=== PATIENT | male | born 1940 | race Caucasian/White ===

== ENCOUNTER 2019-08-08 08:37 | Emergency (ER) | payer MEDICARE, SELFPAY ==
[2019-08-08 08:38] VITALS: BP 161/81; PULSE 93; RESP 16; TEMP 37.3; O2SAT 98; BMI 24.0
[2019-08-08] MEDS: 0.9% Normal Saline 1,000 ML 150 ML IV (09:06)
[2019-08-08 09:12] LABS: Absolute Lymphocyte Count 0.33 X10^3/uL (0.83-4.51); Absolute Neutrophil Count 10.5 X10^3/uL (2.0-7.7); Basophil# 0.04 X10^3/uL; Basophil% 0.4 % (0-1); Eosinophil# 0.14 X10^3/uL; Eosinophils% 1.2 % (0-5); Hematocrit 41.4 % (40-54); Lymphocyte # 0.33 X10^3/ul (4.0); Lymphocyte % 2.9 % (19-41); Mean Corp Hgb Conc 33.8 g/dL (32-36); Mean Corpuscular Hgb 30.7 pg (27.0-32.0); Mean Corpuscular Volume 90.8 fL (80-94); Mean Platelet Vol. 9.4 fl (6.2-12.0); Monocyte# 0.33 X10^3/uL; Monocyte% 2.9 % (0-10); NRBC Flagged by Analyzer 0 % (0-5); Neutrophil # 10.48 X10^3/uL (2.7-7.7); POSITIVE DIFFERENTIAL YES; POSITIVE MORPHOLOGY YES; Platelet Count 135 K/mm3 (150-450); RBC Distribution Width CV 13.1 % (11.6-14.6); RBC Distribution Width SD 43.3 fl (35.1-43.9); Red Blood Count 4.56 M/mm3 (4.6-6.2); White Blood Count 11.4 K/mm3 (4.4-11.0)
[2019-08-08 09:15] LABS: Differential Indicated SCAN CRITERIA MET
[2019-08-08 09:24] LABS: Anion Gap 6 (5-15); BUN 21 mg/dL (7-18); BUN/Creat Ratio 18.3 RATIO (10-20); Calcium,Total 8.9 mg/dL (8.5-10.1); Chloride 107 mmol/L (98-107); Creatinine, Serum 1.15 mg/dL (0.70-1.30); EST Glomerular Filtration Rate 65 mL/min (>60); Est Glom Filt Rate - Afr Amer 79 mL/min (>60); Estimated Creatinine Clearance 54.66 ml/min; Glucose 115 mg/dL (74-106); Potassium 4.1 mmol/L (3.5-5.1); Sodium Level 139 mmol/L (136-145)
[2019-08-08 09:38] LABS: Lactic Acid 1.2 mmol/L (0.4-2.0)
[2019-08-08 09:49] LABS: Mucous, Urine 0 SEEN /hpf (<or=2+); Red Blood Cells-Urine 0 SEEN /hpf (0-5); Squamous Epithelial Cells - UA 0 SEEN /hpf (0-5)
[2019-08-08 09:53] LABS: Color, Urine Yellow (Yellow); Glucose, Dipstick Normal (Normal); Ketone-Dipstick 5 mg/dl (Negative); Leukocyte Esterase-Dipstick 500 /ul (Negative); Nitrite-Dipstick Positive (Negative); Occult Blood-Urine 150 /ul (Negative); Protein-Dipstick 30 mg/dl (Negative); Urine Bilirubin Dipstick Negative (Negative); Urine Clarity Sl. Cloudy (Clear); Urine Urobilinogen Normal (Normal)
[2019-08-08 10:00] LABS: Bacteria 2+ /hpf (None Seen); White Blood Cells >100 SEEN /hpf (0-5)
--- NOTE | 2019-08-08 10:08 | ED.DCSUM_ITS ---
- ER Visit Summary Date of Service: 08/08/19 Chief Complaint: [Dysuria] History of Present Illness: The patient is a 78 M [presents the emergency department with symptoms that started yesterday. Patient has had frequent urinary tract infections in the past. Does complain of some low back pain. Patient seen at urgent care and was noted to have a fever so he was sent to the ER. Patient did not take his temperature at home but subjectively is felt hot. Patient has history of prior stroke, [place], and high cholesterol. Patient has not had any abdominal pain or vomiting.] Physical Examination: [HEENT-PERRLA, EOMI. Cranial nerves II through XII grossly intact. TMs clear. Mucous membranes moist. No adenopathy. Cardiovascular-regular rate and rhythm without murmur or ectopy Lungs-clear to auscultation, chest wall stable without crepitus or subcu emphysema Abdomen-normoactive bowel sounds, soft, nontender, no rebound or rigidity, no peritoneal signs. Extremities-intact ?4, normal range of motion, normal pulses, atraumatic] Test Results: [Blood and urine culture sent. CBC with differential obtained showing an 11.4, hemoglobin 14, hematocrit 41, plates 135. Chemistries unremarkable. Urinalysis positive for 500 leukocyte esterase and greater than 100 WBCs as well as +2 bacteria. Lactate was normal at 1.2.] Emergency Department Course and Treatment: [Patient was given Rocephin 1 g IV. Patient was started on Azo.] Treatment Plan: [She will be treated with Bactrim and Pyridium. Patient to follow-up with his primary care physician within next 3 to 5 days. Patient to return if vomiting, worsening abdomen or back pain, or conditions worsen anyway.] Disposition: [Discharged home in stable condition.] Impression: [UTI] This note was generated with [employer] dictation software. It may contain incorrect words, spelling, and punctuation that were not noted in review of the chart prior to signing ED Disposition - Plan for ED Patient: Referrals: Joshua Colón MD [Primary Care Provider] -
--- NOTE | 2019-08-08 10:10 | ED.DEP ---
ED Disposition - Plan for ED Patient: Instructions: Bladder Infection, Male (Adult) Prescriptions: Smz/Tmp Ds [Bactrim Ds] 1 tab PO BID #14 tab Prescription Printed Phenazopyridine HCl [Pyridium] 200 mg PO BID PRN PRN #10 tab PRN Reason: Pain Prescription Printed Referrals: Joshua Colón MD [Primary Care Provider] - 3-5 Days
[2019-08-08] MEDS: Phenazopyridine 95 MG Tablet 190 MG PO (10:20)
[2019-08-08] MEDS: Ceftriaxone 1 GM/50 ML BAG IV (10:31)
[2019-08-08 10:35] VITALS: BP 169/78; PULSE 88; RESP 18; TEMP 36.8; O2SAT 99
[2019-08-08 11:15] VITALS: BP 150/60; PULSE 86; RESP 16; O2SAT 97
== END 2019-08-08 11:16 | disposition home or self-care (01) ==
LOC: ED 08:58
PROVIDERS: Emergency Provider Emergency Medicine; Family Provider Family Medicine; PCP Family Medicine
DX: N39.0 Urinary tract infection, site not specified (principal); I25.2 Old myocardial infarction; E78.00 Pure hypercholesterolemia, unspecified; I25.10 Atherosclerotic heart disease of native coronary artery without angina pectoris; Z86.73 Personal history of transient ischemic attack (TIA), and cerebral infarction without residual deficits; Z87.440 Personal history of urinary (tract) infections; Z79.02 Long term (current) use of antithrombotics/antiplatelets; Z79.899 Other long term (current) drug therapy
CPT/HCPCS: 36415; 80048; 81001; 83605; 85025; 87040; 87077; 87086; 87088; 87186; 96365; 99284; J7030; A4216

== ENCOUNTER 2020-05-24 15:05 | Emergency (ER) | payer MEDICARE, SELFPAY ==
[2020-05-24 15:06] VITALS: BP 146/86; PULSE 84; RESP 16; TEMP 36.4; O2SAT 99; BMI 25.0
--- NOTE | 2020-05-24 15:21 | ED.VISSUMM ---
- ER Visit Summary Date of Service: 05/24/20 Chief Complaint: Constipation and abdominal pain History of Present Illness: The patient is a 79 M who presents for constipation and abdominal pain. He was seen 6 days ago at an outside hospital for abdominal pain. He has periumbilical pain that radiates to the back. He had a CT which he thinks was unremarkable. He was diagnosed with a UTI and has been taking Keflex. He received morphine at the outside hospital. He presents with no bowel movement since that time. He does not have the urge to go or feel rectal pain. Denies bleeding. Denies vomiting. He has a history of coronary disease, [place], hypertension, hyperlipidemia. History of cholecystectomy remotely. No back or vascular surgery. Physical Examination: Afebrile and vital signs unremarkable. Patient appears uncomfortable but not toxic or in distress. Heart is regular rate and rhythm. Lungs clear. Abdomen is soft and nontender. Normal bowel sounds. Skin appears normal. Test Results: We will start with labs, urinalysis. Patient may need imaging. Will attempt to obtain the outside hospital imaging results. Emergency Department Course and Treatment: Patient was treated with IV fluids while awaiting results. He declined pain medicine. CBC, CMP, lipase unremarkable except ALT 65 and AST 50. His recent ALT was 55. Urinalysis unremarkable. Lactate normal. I reviewed his outside imaging. He had a CTA that was normal. He had a CT that showed a right renal cyst. He has a history of this cyst, according the patient. He also has a right inguinal hernia with bowel just up to the orifice. He is not having pain in this area. I do not suspect he has a hernia with incarceration or strangulation or obstruction. I did check an x-ray. He has a large stool burden but no sign of obstruction. I suspect his pain and no bowel movement for several days is consistent with his constipation. He is taking Dulcolax and enemas with no improvement. Will try magnesium citrate and MiraLAX. Bentyl as needed for cramps. Follow-up with primary care. Treatment Plan: As above Disposition: Discharge Impression: Constipation, abdominal pain, right inguinal hernia, right renal cyst, mild transaminitis This note was generated with [employer] dictation software. It may contain incorrect words, spelling, and punctuation that were not noted in review of the chart prior to signing ED Disposition - Plan for ED Patient: Instructions: ED Constipation Prescriptions: Dicyclomine HCl [Bentyl] 20 mg PO TIDAC #10 cap Prescription Printed Polyethylene Glycol 3350 [Miralax] 17 gm PO DAILY #30 packet Prescription Printed Referrals: Joshua Colón MD [Primary Care Provider] -
[2020-05-24] MEDS: 0.9% Normal Saline 1,000 ML 1000 ML IV (15:27)
[2020-05-24 15:49] LABS: Absolute Lymphocyte Count 1.14 X10^3/uL (0.83-4.51); Absolute Neutrophil Count 4.2 X10^3/uL (2.0-7.7); Basophil# 0.02 X10^3/uL; Basophil% 0.3 % (0-1); Eosinophil# 0.11 X10^3/uL; Eosinophils% 1.8 % (0-5); Hematocrit 41.5 % (40-54); Hemoglobin 14.4 g/dL (13.0-16.5); Lymphocyte # 1.14 X10^3/ul (4.0); Lymphocyte % 18.6 % (19-41); Mean Corp Hgb Conc 34.7 g/dL (32-36); Mean Corpuscular Hgb 30.6 pg (27.0-32.0); Mean Corpuscular Volume 88.3 fL (80-94); Mean Platelet Vol. 8.7 fl (6.2-12.0); Monocyte# 0.63 X10^3/uL; Monocyte% 10.3 % (0-10); NRBC Flagged by Analyzer 0 % (0-5); Neutrophil # 4.19 X10^3/uL (2.7-7.7); Neutrophil % 68.3 % (47-70); Platelet Count 215 K/mm3 (150-450); RBC Distribution Width SD 39.1 fl (35.1-43.9); White Blood Count 6.1 K/mm3 (4.4-11.0)
[2020-05-24 16:01] LABS: ALB/GLOB Ratio 0.7 RATIO (0.9-2.4); AST(SGOT) 50 U/L (15-37); Alanine Aminotransfer ALT/SGPT 65 U/L (16-61); Albumin, Serum 3.2 g/dL (3.2-5.0); Alkaline Phosphatase 96 U/L (45-117); Anion Gap 5 (5-15); BUN 10 mg/dL (7-18); BUN/Creat Ratio 11.8 RATIO (10-20); Calcium,Total 8.6 mg/dL (8.5-10.1); Chloride 99 mmol/L (98-107); Creatinine, Serum 0.85 mg/dL (0.70-1.30); EST Glomerular Filtration Rate 93 mL/min (>60); Est Glom Filt Rate - Afr Amer 112 mL/min (>60); Estimated Creatinine Clearance 68.18 ml/min; Globulin 4.4 g/dL (2.2-4.2); Glucose 94 mg/dL (74-106); Lipase 134 U/L (73-393); Potassium 3.8 mmol/L (3.5-5.1); Protein, Total 7.6 g/dL (6.4-8.2); Sodium Level 132 mmol/L (136-145)
[2020-05-24 16:15] LABS: Lactic Acid 1.2 mmol/L (0.4-1.9)
--- NOTE | 2020-05-24 16:22 | RAD_ITS ---
STUDY: X-RAY - ABDOMEN/PELVIS REASON FOR EXAM: Male, 79 years old. DIFFUSE ABDOMEN PAIN, CONSTIPATION TECHNIQUE: Two AP supine views of the abdomen and pelvis. COMPARISON: None. FINDINGS: Normal visualized lung bases. There is an unremarkable bowel gas pattern. There is no demonstrated free abdominal air. Prominent visualized stool burden. Normal soft tissue structures. Normal visualized osseous structures. RAD/Abdomen Single View (Portable) IMPRESSION: Prominent stool burden. Electronically Signed: Iraj Stapleton, at 17:36 EDT Tel , Service support ,
[2020-05-24 16:37] LABS: Bacteria 0 SEEN /hpf (None Seen); Mucous, Urine 0 SEEN /hpf (<or=2+); White Blood Cells 0 SEEN /hpf (0-5)
[2020-05-24 16:44] LABS: Color, Urine Yellow (Yellow); Glucose, Dipstick Normal (Normal); Ketone-Dipstick Negative (Negative); Leukocyte Esterase-Dipstick Negative /ul (Negative); Nitrite-Dipstick Negative (Negative); Occult Blood-Urine 25 /ul (Negative); Protein-Dipstick 15 mg/dl (Negative); Urine Bilirubin Dipstick Negative (Negative); Urine Clarity Clear (Clear); Urine Urobilinogen Normal (Normal)
[2020-05-24 16:52] LABS: Red Blood Cells-Urine 0-5 SEEN /hpf (0-5); Squamous Epithelial Cells - UA 0-5 SEEN /hpf (0-5)
--- NOTE | 2020-05-24 18:17 | ED.DEP ---
ED Disposition - Plan for ED Patient: Instructions: ED Constipation Prescriptions: Dicyclomine HCl [Bentyl] 20 mg PO TIDAC #10 cap Prescription Printed Polyethylene Glycol 3350 [Miralax] 17 gm PO DAILY #30 packet Prescription Printed Referrals: Joshua Colón MD [Primary Care Provider] -
[2020-05-24 18:32] VITALS: BP 138/76; PULSE 90; RESP 14; O2SAT 99
== END 2020-05-24 18:33 | disposition home or self-care (01) ==
PROVIDERS: Emergency Provider Emergency Medicine; PCP Family Medicine
DX: K59.00 Constipation, unspecified (principal); R10.9 Unspecified abdominal pain; K40.90 Unilateral inguinal hernia, without obstruction or gangrene, not specified as recurrent; N28.1 Cyst of kidney, acquired; R74.0 Nonspecific elevation of levels of transaminase and lactic acid dehydrogenase [LDH]; I25.10 Atherosclerotic heart disease of native coronary artery without angina pectoris; I10 Essential (primary) hypertension; I25.2 Old myocardial infarction; E78.00 Pure hypercholesterolemia, unspecified; Z86.73 Personal history of transient ischemic attack (TIA), and cerebral infarction without residual deficits; Z79.02 Long term (current) use of antithrombotics/antiplatelets; Z79.899 Other long term (current) drug therapy; Z87.891 Personal history of nicotine dependence
CPT/HCPCS: 74018; 80053; 81001; 83605; 83690; 85025; 96360; 96361; 99283; J7030

== ENCOUNTER 2020-11-10 10:33 | Day surgery (SDC) | payer MEDICARE, SELFPAY ==
--- NOTE | 2020-11-06 13:40 | EKG12_ITS ---
Test Reason : PRE OP Blood Pressure : / mmHG Vent. Rate : 069 BPM Atrial Rate : 087 BPM P-R Int : 222 ms QRS Dur : 078 ms QT Int : 400 ms P-R-T Axes : 034 038 022 degrees QTc Int : 428 ms Sinus rhythm with marked sinus arrhythmia with 1st degree A-V block Septal infarct , age undetermined Abnormal ECG Confirmed by KENIA MOORE, ASHLEY ([id number]), editorial intern CARMELA MONDRAGON ([id number]) on 11/07/2020 8:28:26 AM Referred By: Pankaj Abbott Confirmed By:ASHLEY AQUINO MD
[2020-11-06 15:39] LABS: Hematocrit 47.7 % (40-54); Hemoglobin 15.6 g/dL (13.0-16.5); Mean Corp Hgb Conc 32.7 g/dL (32-36); Mean Corpuscular Hgb 28.8 pg (27.0-32.0); Mean Corpuscular Volume 88.2 fL (80-94); Mean Platelet Vol. 9.6 fl (6.2-12.0); Platelet Count 202 K/mm3 (150-450); RBC Distribution Width CV 12.9 % (11.6-14.6); RBC Distribution Width SD 41.7 fl (35.1-43.9); Red Blood Count 5.41 M/mm3 (4.6-6.2)
[2020-11-06 15:51] LABS: International Normalized Ratio 1.1; Partial Thromboplast Time 31.3 Seconds (24.1-36.2); Prothrombin Time (Protime)PT. 13.4 SECONDS (11.7-14.9)
[2020-11-06 16:09] LABS: AST(SGOT) 29 U/L (15-37); Alanine Aminotransfer ALT/SGPT 40 U/L (16-61); Albumin, Serum 3.8 g/dL (3.2-5.0); Alkaline Phosphatase 81 U/L (45-117); Anion Gap 7 (5-15); BUN 14 mg/dL (7-18); BUN/Creat Ratio 14.3 RATIO (10-20); Bilirubin, Direct 0.15 mg/dL (0.00-0.30); Calcium,Total 9.2 mg/dL (8.5-10.1); Chloride 104 mmol/L (98-107); Creatinine, Serum 0.98 mg/dL (0.70-1.30); EST Glomerular Filtration Rate 79 mL/min (>60); Est Glom Filt Rate - Afr Amer 95 mL/min (>60); Globulin 3.6 g/dL (2.2-4.2); Glucose 89 mg/dL (74-106); Potassium 4.4 mmol/L (3.5-5.1); Protein, Total 7.4 g/dL (6.4-8.2); Sodium Level 140 mmol/L (136-145)
[2020-11-10] VITALS (9 sets, daily range): BP systolic 132–140; BP diastolic 60–91; PULSE 65–83; RESP 16–18; TEMP 36.1–37.3; O2SAT 96–100; BMI 24.1
[2020-11-10] MEDS: Lactated Ringers 1,000 ML 100 ML IV (11:03)
[2020-11-10] MEDS: Cefazolin 2 GM in 0.9% Normal Saline 100 ML IV (12:42)
--- NOTE | 2020-11-10 12:47 | HP.PCM_ITS ---
History of Present Illness Date of Admission: 11/10/20 Chief Complaint: BPH with obstruction The patient is a 80 year old male with BPH and obstruction plan to proceed with transurethral section of the prostate. Past Medical History Past Medical History (Chronic Problems): Chronic Problems History of AK (myocardial infarction) (Chronic) Coronary artery disease (Chronic) HLD (hyperlipidemia) (Chronic) Allergies No Known Allergies Allergy (Verified 11/10/20 10:35) Home Medications: Ambulatory Orders Medication Instructions Recorded Folic Acid 800 mg PO QHS 07/03/15 Multivitamin [Daily Multiple 1 tab PO QHS 07/03/15 Vitamin] Psyllium Husk [Fiber] 0.8 gm PO DAILY 04/20/17 Acetaminophen [Tylenol Tablet] 650 mg PO Q4H PRN PRN tablet 04/22/17 Clopidogrel Bisulfate [Plavix] 75 mg PO DAILY #30 tablet 04/22/17 Glucosamine/MSM/Chondroitin A 1 each PO QHS 05/09/17 [Glucosamine Chondroit MSM Tab] Simvastatin [Zocor] 40 mg PO QHS 08/08/19 Amlodipine [Norvasc] 5 mg PO DAILY 11/03/20 Ciprofloxacin [Cipro] 500 mg PO BID #6 tab 11/10/20 Ibuprofen 600 mg PO Q6H PRN PRN 7 Days #14 11/10/20 tab Surgical History: - - Cholecystectomy. Psychiatric History: No pertinent psych hx Smoking Status: Former smoker - *Family History Paternal History Items: - - Father with history of tuberculosis and chronic lung disease, in his 50s. Maternal History Items: Cancer - Mother with history of breast cancer. Review of Systems Constitutional: Denies: Chills, Fever, Weight Change HEENT: Denies: Head Aches, Sinus Congestion, Sinus Drainage Cardiovascular: Denies: Chest Pain, Palpitations Respiratory: Denies: Cough, Shortness of breath at rest, Sputum production Gastrointestinal: Denies: Abdominal Pain, Nausea, Vomiting Genitourinary: Denies: Dysuria Musculoskeletal: Denies: Joint Pain, Joint Tenderness Skin: Denies: Rash, Wounds Neurological: Denies: Numbness, Tingling, Focal weakness Psychiatric: Denies: Anxiety, Depression, Homicidal Ideations, Suicidal Ideations Hematologic/ Lymphatic: Denies: Easy Bruising, Easy Bleeding VTE Information - Inpt Only VTE Present on Admission: No - Physical Exam Vitals/I&O's: Vital Signs Temp Pulse Resp BP Pulse Ox 99.1 F 74 16 140/74 H 96 11/10/20 10:56 11/10/20 10:56 11/10/20 10:56 11/10/20 10:56 11/10/20 10:56 Oxygen Delivery Method Room Air Weight: 76.3 kg Body Mass Index (BMI) 24.1 Finger Stick Blood Glucose 102 General: Alert, Oriented x3, Cooperative HEENT: Atraumatic, PERRLA, EOMI, Normocephalic Neck: Supple, No JVD, Negative Carotid Bruits Lungs: Clear to auscultation, Normal air movement Cardiovascular: Regular rate, No murmurs Abdomen: Bowel Sounds Present, Soft, Non Tender Extremities: No edema, Capillary Refill Less than 3 Seconds Skin: No rashes, No breakdown Musculoskeletal: No Tenderness to Palpation of Joints or Extremities Neurological: Cranial nerves II-XII grossly intact Psych/Mental Status: Normal Affect, Appropriate Microbiology Past 72 Hours 11/09/20 11:08 Interface Orders SARS-CoV-2 Antigen (Rapid) - Final Current Medications Acetaminophen (Acetaminophen 325 Mg Tablet) 650 mg PO Q4H PRN PRN PRN Reason: Headache/Temp>99F Acetaminophen (Acetaminophen 325 Mg Tablet) 325 mg PO Q4H PRN PRN PRN Reason: PAIN Acetaminophen/Codeine Phosphate (Acetaminophen/Codeine #3 Tablet) 1 tablet PO Q4H PRN PRN PRN Reason: PAIN Al Hydroxide/Mg Hydroxide (Mag Hydrox/Al Hydrox/Simeth 30 Ml Udc) 30 ml PO Q4H PRN PRN PRN Reason: Heartburn Amlodipine Besylate (Amlodipine 5 Mg Tablet) 5 mg PO DAILY [facility] Docusate Sodium (Docusate Sodium 100 Mg Capsule) 100 mg PO BID [facility] Cefazolin Sodium 2 gm/ Sodium (Chloride) 110 mls @ 150 mls/hr IV PREOP ONE Stop: 11/10/20 13:33 Lactated Ringer's () 1,000 mls @ 100 mls/hr IV .Q10H [facility]E Last Admin: 11/10/20 11:03 Dose: 100 mls/hr Documented by: Ciprofloxacin (Cipro) 400 mg in 200 mls @ 200 mls/hr IV Q12 [facility] Sodium Chloride () 1,000 mls @ 75 mls/hr IV .[id number] [facility] Ibuprofen (Ibuprofen 600 Mg Tablet) 600 mg PO Q6H PRN PRN PRN Reason: PAIN Multivitamins (Multivitamins,Therapeutic Tablet) tablet PO QHS [facility] Non-Formulary Medication (Folic Acid) 800 mg PO QHS [facility] Non-Formulary Medication (Glucosamine/Msm/Chondroitin A [Glucosamine Chondroit Msm Tab]) 1 each PO QHS [facility] Non-Formulary Medication (Psyllium Husk [Fiber]) 0.8 gm PO DAILY [facility] Non-Formulary Medication (Simvastatin) 40 mg PO QHS [facility] Ondansetron HCl (Ondansetron 4 Mg/2 Ml Vial) 4 mg IV Q6H PRN PRN PRN Reason: Nausea Oxycodone HCl (Oxycodone 5 Mg Tablet) 5 mg PO Q4H PRN PRN PRN Reason: PAIN Pantoprazole Sodium (Pantoprazole Sodium 40 Mg Tablet) 40 mg PO DAILY [facility] Assessment/Plan All Active Problems TIA (transient ischemic attack) (Acute) CVA (cerebral vascular accident) (Acute) 80-year-old male with BPH obstruction from plan to proceed with BPH surgery with a TURP
--- NOTE | 2020-11-10 12:48 | PCM.DC.URO ---
Discharge Diet: Light diet - advance as tolerated Discharge Activity: Return to Normal Activity Additional Instructions: hold plavix, clopidogrel, DO NOT RESTART Allergies/Adverse Reactions: Allergies No Known Allergies Allergy (Verified 11/10/20 10:35) Medications to take at Discharge Folic Acid 800 mg PO QHS 07/03/15 Multivitamin [Daily Multiple Vitamin] 1 tab PO QHS 07/03/15 Psyllium Husk [Fiber] 0.8 gm PO DAILY 04/20/17 Acetaminophen [Tylenol Tablet] 650 mg PO Q4H PRN PRN tablet 04/22/17 Glucosamine/MSM/Chondroitin A [Glucosamine Chondroit MSM Tab] 1 each PO QHS 05/09/17 Simvastatin [Zocor] 40 mg PO QHS 08/08/19 Amlodipine [Norvasc] 5 mg PO DAILY 11/03/20 Ciprofloxacin [Cipro] 500 mg PO BID #6 tab 11/10/20 Ibuprofen 600 mg PO Q6H PRN PRN 7 Days #14 tab 11/10/20 The following prescriptions were given: Ciprofloxacin [Cipro] 500 mg PO BID #6 tab Transmission Status: Pending to [facility] Ibuprofen 600 mg PO Q6H PRN PRN 7 Days #14 tab PRN Reason: Pain 1-10 Or Fever Transmission Status: Pending to [facility] Primary Care Physician: Joshua Colón MD [Primary Care Provider] - Test Results: Test results from this visit will be discussed in further detail at your follow-up appointment, if applicable. Please Follow Up With: Pankaj Abbott MD When: in 2 weeks, please call to make an appointment. Proposed Discharge Date: 11/11/20
--- NOTE | 2020-11-10 12:50 | PROS_PTH ---
PATIENT: SHELBIE ALDRICH LOC: [facility] [place] U#:[id number] AGE/SX: 80/M ROOM: RE11/10/[address]: Dr. Pankaj Abbott MD : [id number] BED: DIS: 11/11/2020 SPEC #: [id number] RECD: 11/10/20 14:54 STATUS: WILLIAN REQuentin #: [id number] MARISABEL: 11/10/20 12:[address]: Pankaj Abbott DEPT: SURGICAL PATHOLOGY RECD BY: Elaina Chow ENTERED: 11/13/20 07:43 SP TYPE: TURP OTHR DR: Dr. Joshua Colón MD Tissues: Prostate, NOS Procedures: Surgery Specimen Level IV HEADER OPERATION: Cysto, TUR prostate, Olymp[employer] PRE-OP DIAGNOSIS: BPH with obstruction TISSUE SUBMITTED: Prostate chips MICROSCOPIC DIAGNOSIS Prostate, transurethral resection: Benign nodular hyperplasia, glandular and stromal types. Chronic inflammation. Urothelium with mild chronic inflammation. AM:soto 11/14/2020 MICROSCOPIC DESCRIPTION Slides are reviewed. GROSS DESCRIPTION Received is one container labeled with the patient's name and designated prostate tissue. The specimen consists of multiple irregular fragments of pink-alba, rubbery, soft tissue that in aggregate weigh 7.2 gm and measure in aggregate 6 x 6 x 0.4 cm. The entire specimen is submitted in seven cassettes. / AM:soto 11/13/20 TC:3 CPT: 73280
--- NOTE | 2020-11-10 13:16 | PCM.OPRPT ---
Report of Operation Date of Procedure: 11/10/20 Pre-Operative Diagnosis: BPH with obstruction Post-Operative Diagnosis: Same Surgery/Procedure Performed:: Transurethral section of prostate Description of Surgical Findings:: In the preoperative setting I discussed with the patient how the surgery would be done with expect afterwards. We discussed how a prostate resection is done and we discussed the risk of the surgery including, bleeding, infection, retrograde ejaculation, changes with ejaculation or intercourse,. We discussed the possibility that the resection of the prostate may not alleviate his urinary symptoms. We discussed the small risk of developing scar tissue along the urethral channel and strictures. We also discussed the chance of the prostate could grow back and he may need further surgery or treatment in the future for prostate problems. Patient was taken back to the operating room, timeout procedure was performed, he was identified and marked and placed on the operating room table. He underwent general anesthesia. He was placed in dorsolithotomy position. Penis and testicles were prepped and draped in usual sterile fashion. Went into the bladder using the visual obturator with a resectoscope. Once inside the bladder identified the right and left ureteral orifice. I then identified the prostate and the anatomy of the prostate. I marked out the area of the sphincter and the verumontanum was identified. I then proceeded with the prostate resection first resected the median lobe. And then resected the right lobe of the prostate. Then to resect the left lobe of the prostate. I then resected the apical tissue of the prostate. Made sure that there was no injury to the sphincter or the verumontanum was still intact. At the end of the resection all the chips were Ellik out of the bladder. I then identified the left and right ureteral orifice and these were confirmed to be in good position and effluxing and not injured. The resectoscope was removed, a 22 [place] catheter was placed into the bladder on continuous irrigation. And the urine was fairly light pink color and draining normally. He was taken back to the PACU in good condition. Type of Anesthesia:: General Drains: 22fr 3 way - Admit VTE Documentation VTE Present on Admission: No VTE Mechan Device Prophylaxis: SCD's
[2020-11-10] MEDS: 0.9% Normal Saline 1,000 ML 75 ML IV (13:53)
[2020-11-10] MEDS: Atorvastatin Calcium 20 MG Tablet PO (21:18)
[2020-11-10] MEDS: Docusate Sodium 100 MG Capsule PO (21:18)
[2020-11-10] MEDS: Multivitamins,Therapeutic Tablet 1 TABLET PO (21:18)
[2020-11-10] MEDS: Folic Acid 1 MG Tablet PO (21:18)
[2020-11-10] MEDS: Ciprofloxacin 400 MG/200 ML BAG 200 MG IV (23:07)
[2020-11-11] MEDS: Acetaminophen 325 MG Tablet PO (00:28)
[2020-11-11 02:08] VITALS: BP 124/61; PULSE 76; RESP 18; TEMP 36.4; O2SAT 96
[2020-11-11 02:12] VITALS: BMI 24.1
[2020-11-11] MEDS: 0.9% Normal Saline 1,000 ML 75 ML IV (02:13)
[2020-11-11 07:44] VITALS: BP 124/73; PULSE 61; RESP 16; TEMP 36.5; O2SAT 98
[2020-11-11] MEDS: Pantoprazole Sodium 40 MG Tablet PO (07:49)
[2020-11-11] MEDS: Psyllium 1 PACKET PO (07:49)
[2020-11-11] MEDS: Docusate Sodium 100 MG Capsule PO (07:49)
[2020-11-11] MEDS: amLODIPine 5 MG Tablet PO (07:50)
[2020-11-11] MEDS: Ciprofloxacin 400 MG/200 ML BAG 200 MG IV (09:26)
== END 2020-11-11 11:59 | disposition home or self-care (01) ==
LOC: SDC 10:34 → AC 10:35 → MS3 13:29
PROVIDERS: Anesthesiology; PCP Family Medicine; Referring Provider Urology; Visit Provider Urology
PROC: (CPT 52601; principal; 2020-11-10 12:40)
DX: N40.1 Benign prostatic hyperplasia with lower urinary tract symptoms (principal); N13.8 Other obstructive and reflux uropathy; Z20.828 Contact with and (suspected) exposure to other viral communicable diseases; I10 Essential (primary) hypertension; I25.2 Old myocardial infarction; N28.1 Cyst of kidney, acquired; E78.5 Hyperlipidemia, unspecified; I25.10 Atherosclerotic heart disease of native coronary artery without angina pectoris; E78.00 Pure hypercholesterolemia, unspecified; Z86.73 Personal history of transient ischemic attack (TIA), and cerebral infarction without residual deficits; Z87.440 Personal history of urinary (tract) infections; Z79.02 Long term (current) use of antithrombotics/antiplatelets; Z79.899 Other long term (current) drug therapy; Z87.891 Personal history of nicotine dependence
CPT/HCPCS: 00914; 52601; 36415; 80048; 80076; 85027; 85610; 85730; 87426; 88305; 93005; C9803; J7030; J7120; J0744; J2405

== ENCOUNTER 2021-03-05 17:19 | Emergency (ER) | payer MEDICARE, SELFPAY ==
[2020-11-10 10:56] VITALS: BMI 24.1
[2021-03-05 17:20] VITALS: BP 152/76; PULSE 59; RESP 16; TEMP 36.3; O2SAT 97; BMI 24.1
--- NOTE | 2021-03-05 17:47 | US_ITS ---
HISTORY: pain and swelling-bilat EXAMINATION: US Scrotum (Contents) TECHNIQUE: Realtime ultrasound of the testicles was performed with grayscale, Color Doppler and spectral Doppler analysis. COMPARISON: None FINDINGS: RIGHT: TESTIS: 4.5 x 3.2 x 2.7 cm. Normal in size and echotexture, without focal lesion. COLOR DOPPLER: Normal arterial flow present in the testicle with monophasic waveforms. EPIDIDYMIS: Normal in size and echotexture, 3 mm spermatocele. Normal color Doppler flow pattern in the epididymis. 4 mm scrotal huang. HYDROCELE: Moderate with internal debris. VARICOCELE: None. LEFT: TESTIS: 3.7 x 2.7 x 2.5 cm. Normal in size and echotexture, without focal lesion. COLOR DOPPLER: Normal arterial flow present in the testicle with monophasic waveforms. EPIDIDYMIS: Enlarged with heterogenous echotexture. 10 mm spermatocele. Hyperemic color Doppler flow pattern in the epididymis. HYDROCELE: Moderate with internal debris. VARICOCELE: Present. US/Testicular with Arterial Flow IMPRESSION: Findings consistent with left epididymitis. Normal testes bilaterally. at 1954 Reported and signed by: Nehemias Horton MD Electronically Signed: Nehemias Horton MD at 19:52 EDT Tel , Service support ,
--- NOTE | 2021-03-05 17:49 | EX.ED.GUMALE ---
HPI History of Present Illness Chief Complaint: Male Pain/Injury Informant: patient Pain Onset: Yesterday Timing: Continuous Current Severity: Mild Maximum Severity: Mild Narrative Narrative: 80-year-old male past medical history of of TIA, [place], CAD with stent on Plavix. Prior BPH with surgery for that. States yesterday he had gradual swelling of his scrotum and testicles. Worse on the left. Denies any falls or trauma. No fever. No dysuria. No hematuria. Denies any other complaints. No fever or chills. Prior similar symptoms: No Recent Illness/Hospitalization: No PFSH PFSH Medical History Hyperlipidemia Hypertension Myocardial infarct TIA (transient ischemic attack) Home Medications folic acid 800 mg PO QHS 07/03/15 [History Last Taken 07/02/15 20:00] multivitamin [Daily Multiple] 1 tab PO QHS 07/03/15 [History Last Taken 07/02/15 20:00] psyllium husk [Fiber (psyllium husk)] 0.8 g PO DAILY 04/20/17 [History Last Taken Unknown] acetaminophen [Tylenol] 650 mg PO Q4H PRN PRN tab 04/22/17 [Rx Last Taken Unknown] glucosamine [id number] 1 ea PO QHS 05/09/17 [History Last Taken Unknown] simvastatin 40 mg PO QHS 08/08/19 [History Last Taken Unknown] amlodipine 5 mg PO DAILY 11/03/20 [History Last Taken Unknown] ciprofloxacin HCl [Cipro] 500 mg PO BID 10 Days #20 tab 03/05/21 [Rx Last Taken Unknown] clopidogrel 75 mg PO DAILY 03/05/21 [History Last Taken Unknown] Allergy/AdvReac Type Severity Reaction Status Date / Time No Known Allergies Allergy Verified 03/05/21 17:20 Surgical History History of cholecystectomy History of coronary artery stent placement Social History Smoking Status: Former smoker ROS ROS ED ROS Narrative Patient denies any recent illness. Denies any complaints. Denies any constitutional symptoms. Review of Systems ROS Unobtainable: Denies due to encephalopathy Constitutional Constitutional ED: Denies fever(s) Eyes Eyes: Denies change in vision ENT ENT ED: Denies ear pain or sore throat Cardiovascular Cardiovascular: Denies chest pain Respiratory/Chest Respiratory/Chest: Denies dyspnea Gastrointestinal Gastrointestinal: Denies abdominal pain, diarrhea, nausea or vomiting Genitourinary Genitourinary ED: Reports testicular swelling; Denies dysuria, hematuria or testicular mass Musculoskeletal Musculoskeletal: Denies myalgias Integumentary Denies rash Neurologic Neurologic: Denies headache(s) Psychiatric Psychiatric: Denies depression Endocrine Endocrinology: Denies polyuria Hematologic/Lymphatic Hematologic/Lymphatic: Denies easy bruising Allergic/Immunologic Allergic/Immunologic ED: Denies urticaria EXAM Physical Exam Narrative Exam Narrative: Older male no acute distress. Vital signs stable afebrile. HEENT, neck, heart lung abdominal exams unremarkable. Abdomen spleen nontender. Moving all 4 extremities. No edema. Back nontender. Neurologic exam normal. External exam uncircumcised male. Scrotal swelling bilaterally. Left larger than the right. No cellulitis. No lesions. No foreign years gangrene. Mildly tender. Left hemiscrotum and testicle seems more enlarged than the right no bruising. Const Vital Signs: 03/05/21 17:20 Temperature 97.3 F L Temperature Source Temporal Pulse Rate 59 L Respiratory Rate 16 Blood Pressure 152/76 H Blood Pressure Mean 101 Pulse Ox 97 Oxygen Delivery Method Room Air HEENT Reports moist mucous membranes normocephalic and atraumatic; Negative for tenderness Eyes PERRL and EOMs intact bilaterally Neck no lymphadenopathy, supple and no JVD General: Negative for tenderness Resp normal respiratory effort and clear to auscultation bilaterally Cardio regular rate, regular rhythm and no murmurs GI non-tender, non-distended and no masses Auscultation: normoactive bowel sounds; Negative for hyperactive bowel sounds Palpation: soft Rectal Exam: Negative for tenderness no CVA tenderness Penis: normal penis and uncircumcised Scrotum: testes descended bilaterally, tenderness, edematous and scrotal swelling Testes: testicular lie normal, enlarged testicle(s), testicular swelling and testicular tenderness; Negative for absent testicle, testicular mass, blue dot sign or high-riding testicle Back/Spine no CVA tenderness Extremity normal to inspection General Extremety ED: Negative for edema or tenderness General Extremity: Negative for edema Neuro oriented x3 Sensorium / Orientation: alert, oriented to person, oriented to place and oriented to time Psych mental status grossly normal Skin Lesions: no lesions Rashes: no rashes MDM MDM MDM Narrative Medical decision making narrative: Patient with scrotal swelling and tenderness more so on the left than the right. History and exam are consistent with orchitis or epididymal orchitis. Ultrasound, labs and urinalysis are pending. Patient will be treated with p.o. Cipro. Repeat exam patient is doing well at 7:57 PM will be discharged home. I went over all test results with him and treatment plan. Lab Data Attestation: I reviewed the patient's lab results. Lab results narrative: CBC normal white count 7. Hemoglobin 13. Electrolytes unremarkable normal creatinine and gap. UA shows 5200 white cells 5-10 red cells rare bacteria and no nitrites. This would go along with an orchitis or epididymitis. Ultrasound is consistent with a left epididymitis is read by the radiologist.. Labs: Laboratory Results - last 24 hr 03/05/21 03/05/21 03/05/21 17:50 17:50 18:30 WBC 7.7 RBC 4.56 L Hgb 13.7 Hct 40.9 MCV 89.7 MCH 30.0 MCHC 33.5 RDW Std Deviation 39.5 RDW Coeff of [place]erto 12.0 Plt Count 196 MPV 9.4 Immature Gran % (Auto) 0.300 Neut % (Auto) 71.5 H Lymph % (Auto) 16.0 L [place] % (Auto) 11.3 H Eos % (Auto) 0.5 Baso % (Auto) 0.4 Absolute Neuts (auto) 5.5 Absolute Lymphs (auto) 1.23 Nucleated RBC % 0 Sodium 137 Potassium 4.1 Chloride 104 Carbon Dioxide 26.0 Anion Gap 7 BUN 12 Creatinine 0.89 Estim Creat Clear Calc 68.35 Est GFR (MDRD) Af Amer 106 Est GFR (MDRD) Non-Af 87 BUN/Creatinine Ratio 13.5 Glucose 89 Calcium 8.9 Urine Color Yellow Urine Clarity Sl. Cloudy Urine pH 7.0 Ur Specific [place] 1.010 Urine Protein 30 H Urine Glucose (UA) Normal Urine Ketones Negative Urine Occult Blood 50 H Urine Nitrite Negative Urine Bilirubin Negative Urine Urobilinogen Normal Ur Leukocyte Esterase 500 H Urine RBC 5-10 SEEN Urine WBC 50-100 SEEN Ur Squamous Epith Cells 0-5 SEEN Urine Bacteria RARE Urine Mucus 0 SEEN Radiography Diagnostic Testing: Radiology Impression Testicular Ultrasound 03/05/21 17:47 IMPRESSION: Findings consistent with left epididymitis. Normal testes bilaterally. at 1954 Reported and signed by: Nehemias Horton MD Electronically Signed: Nehemias Horton MD at 19:52 EDT Tel , Service support , Discharge Plan Triage Chief Complaint: Male Pain/Injury ED Provider: Duncan Ortega Dx/Rx/DC Orders Clinical Impression: Acute epididymitis Instructions: ED Epididymitis Prescriptions: New ciprofloxacin HCl [Cipro] 500 mg tablet 500 mg PO BID 10 Days Qty: 20 RF: 0 No Action folic acid 0.8 MG capsule 800 mg PO QHS RF: 0 multivitamin [Daily Multiple] 1 EACH tablet 1 tab PO QHS RF: 0 psyllium husk [Fiber (psyllium husk)] 0.4 GM capsule 0.8 g PO DAILY RF: 0 acetaminophen [Tylenol] 325 MG tablet 650 mg PO Q4H PRN PRN (Reason: Headache/Temp>99F) RF: 0 glucosamine [id number]-[id number] 1 EACH tablet 1 ea PO QHS RF: 0 simvastatin 40 MG tablet 40 mg PO QHS RF: 0 amlodipine 5 MG tablet 5 mg PO DAILY RF: 0 clopidogrel 75 mg tablet 75 mg PO DAILY RF: 0 Primary Care Provider: Joshua Colón Referrals: Joshua Colón MD [Primary Care Provider] - As Needed Pankaj Abbott MD [STAFF PHYSICIAN] - 1 Week Activity Restrictions/Additional Instructions: You have left-sided epididymitis which is basically infection around the testicle. He will be treated with antibiotics Cipro 1 pill twice a day for 10 days. Call and follow-up with the urologist or your primary care physician. Tylenol and/or Motrin for pain. Return if feeling worse. Disposition Disposition: Home, self care
[2021-03-05 18:07] LABS: Absolute Lymphocyte Count 1.23 X10^3/uL (0.83-4.51); Absolute Neutrophil Count 5.5 X10^3/uL (2.0-7.7); Basophil# 0.03 X10^3/uL; Basophil% 0.4 % (0-1); Eosinophil# 0.04 X10^3/uL; Eosinophils% 0.5 % (0-5); Hematocrit 40.9 % (40-54); Hemoglobin 13.7 g/dL (13.0-16.5); Lymphocyte # 1.23 X10^3/ul (0.83-4.51); Mean Corp Hgb Conc 33.5 g/dL (32-36); Mean Corpuscular Volume 89.7 fL (80-94); Mean Platelet Vol. 9.4 fl (6.2-12.0); Monocyte# 0.87 X10^3/uL; Monocyte% 11.3 % (0-10); NRBC Flagged by Analyzer 0 % (0-5); Neutrophil % 71.5 % (47-70); Platelet Count 196 K/mm3 (150-450); RBC Distribution Width SD 39.5 fl (35.1-43.9); Red Blood Count 4.56 M/mm3 (4.6-6.2); White Blood Count 7.7 K/mm3 (4.4-11.0)
[2021-03-05 18:36] LABS: Mucous, Urine 0 SEEN /hpf (<or=2+)
[2021-03-05 18:44] LABS: Color, Urine Yellow (Yellow); Glucose, Dipstick Normal (Normal); Ketone-Dipstick Negative (Negative); Leukocyte Esterase-Dipstick 500 /ul (Negative); Nitrite-Dipstick Negative (Negative); Occult Blood-Urine 50 /ul (Negative); Protein-Dipstick 30 mg/dl (Negative); Urine Bilirubin Dipstick Negative (Negative); Urine Clarity Sl. Cloudy (Clear); Urine Urobilinogen Normal (Normal)
--- NOTE | 2021-03-05 18:58 | ED.RN ---
called pharmacy about nita
[2021-03-05 19:02] LABS: Bacteria RARE /hpf (None Seen); Red Blood Cells-Urine 5-10 SEEN /hpf (0-5); Squamous Epithelial Cells - UA 0-5 SEEN /hpf (0-5); White Blood Cells 50-100 SEEN /hpf (0-5)
[2021-03-05] MEDS: Ciprofloxacin 500 MG Tablet PO (19:11)
[2021-03-05 19:19] LABS: Anion Gap 7 (5-15); BUN 12 mg/dL (7-18); BUN/Creat Ratio 13.5 RATIO (10-20); Calcium,Total 8.9 mg/dL (8.5-10.1); Chloride 104 mmol/L (98-107); Creatinine, Serum 0.89 mg/dL (0.70-1.30); EST Glomerular Filtration Rate 87 mL/min (>60); Est Glom Filt Rate - Afr Amer 106 mL/min (>60); Estimated Creatinine Clearance 68.35 ml/min; Glucose 89 mg/dL (74-106); Potassium 4.1 mmol/L (3.5-5.1); Sodium Level 137 mmol/L (136-145)
[2021-03-05 20:25] VITALS: BP 129/78; PULSE 78; RESP 16
--- NOTE | 2021-03-05 21:07 | ED.RN ---
PTS MED TO BED FINALLY ARRIVED. NO FURTHER QUESTIONS.
== END 2021-03-05 21:08 | disposition home or self-care (01) ==
PROVIDERS: Emergency Provider Emergency Medicine; PCP Family Medicine
DX: N45.1 Epididymitis (principal); E78.5 Hyperlipidemia, unspecified; I10 Essential (primary) hypertension; I25.10 Atherosclerotic heart disease of native coronary artery without angina pectoris; N40.0 Benign prostatic hyperplasia without lower urinary tract symptoms; I25.2 Old myocardial infarction; Z86.73 Personal history of transient ischemic attack (TIA), and cerebral infarction without residual deficits; Z95.5 Presence of coronary angioplasty implant and graft; Z79.02 Long term (current) use of antithrombotics/antiplatelets; Z79.899 Other long term (current) drug therapy; Z87.891 Personal history of nicotine dependence
CPT/HCPCS: 76870; 80048; 81001; 85025; 93976; 99284; A4216

== ENCOUNTER → 2021-07-03 | Outpatient (CLI) | payer MEDICARE, SELFPAY | END | disposition home or self-care (01) | LOC: LABSPEC 10:50 | PROVIDERS: PCP Family Medicine; Referring Provider Nurse Practitioner Adult Health; Visit Provider Nurse Practitioner Adult Health | DX: R31.0 Gross hematuria (principal) | CPT/HCPCS: 87077; 87086; 87088; 87186 ==

== ENCOUNTER 2021-10-06 09:58 | Emergency (ER) | payer MEDICARE, SELFPAY ==
[2021-10-06 09:59] VITALS: BP 168/80; PULSE 86; RESP 20; TEMP 35.7; O2SAT 100; BMI 25.7
[2021-10-06 10:04] VITALS: O2SAT 99
--- NOTE | 2021-10-06 10:04 | EKG12_ITS ---
Test Reason : REPEAT Blood Pressure : / mmHG Vent. Rate : 064 BPM Atrial Rate : 064 BPM P-R Int : 224 ms QRS Dur : 092 ms QT Int : 394 ms P-R-T Axes : 064 -14 013 degrees QTc Int : 406 ms Sinus rhythm with 1st degree A-V block with Premature atrial complexes in a pattern of bigeminy Nonspecific T wave abnormality Poor R wave progression Abnormal ECG Confirmed by FITZ MOORE, JONEL ([id number]), medical transcription editor CARMELA MONDRAGON ([id number]) on 10/10/2021 10:47:35 AM Referred By: JOSE Confirmed By:JONEL BYRNES MD
--- NOTE | 2021-10-06 10:10 | ED.VIS.CHEST ---
HPI History of Present Illness Chief Complaint: Chest Pain Informant: patient Onset/Context/Timing Onset: Today Activity at onset: gradual Timing: Intermittent Quality: Positive for Indigestion Current Severity: Mild Maximum Severity: Mild Worsened By: Nothing Relieved By: Nothing Associated Symptoms: Positive for Palpitations; Negative for Nausea, Vomiting, Diaphoresis, Dyspnea, Cough, Fever, Lightheadedness and Acid Reflux Narrative Narrative: 81-year-old maleWith a history of prior SD in 1990 angioplasty x3 and one cardiac stent. He is on Plavix. He has had 2 prior TIA days. History of hypertension high cholesterol. States he has had intermittent chest pain primarily today is also been intermittently in the last couple weeks. Not at all associated with exertion. Nothing makes it better or worse. Does not feel like his prior SD. No nausea, shortness of breath or diaphoresis. Not change with position or eating. He thinks it feels like indigestion. He denies any recent illness or hospitalization. Prior Similar Symptoms: Yes Recent Illness/Hospitalization: No CVD Risk Factors: Positive for Hypertension and Hypercholesterolemia; Negative for Diabetes and Smoking PE Risk Factors: Negative for Recent Travel/Surgery, Recent Immobilization, Prior DVT or PE, Cancer and OCP + Smoking + >/=35 TAD Risk Factors: Negative for Marfan's Syndrome [facility] Medical History Hyperlipidemia Hypertension Myocardial infarct TIA (transient ischemic attack) Home Medications folic acid 800 mg PO QHS 07/03/15 [History Last Taken 07/02/15 20:00] multivitamin [Daily Multiple] 1 tab PO QHS 07/03/15 [History Last Taken 07/02/15 20:00] psyllium husk [Fiber (psyllium husk)] 0.8 g PO DAILY 04/20/17 [History Last Taken Unknown] acetaminophen [Tylenol] 650 mg PO Q4H PRN PRN tab 04/22/17 [Rx Last Taken Unknown] glucosamine [id number]-[id number] 1 ea PO QHS 05/09/17 [History Last Taken Unknown] simvastatin 40 mg PO QHS 08/08/19 [History Last Taken Unknown] amlodipine 5 mg PO DAILY 11/03/20 [History Last Taken Unknown] ciprofloxacin HCl [Cipro] 500 mg PO BID 10 Days #20 tab 03/05/21 [Rx Last Taken Unknown] clopidogrel 75 mg PO DAILY 03/05/21 [History Last Taken Unknown] atorvastatin 40 mg PO DAILY 10/06/21 [History Last Taken Unknown] pantoprazole [Protonix] 20 mg PO DAILY #30 tab 10/06/21 [Rx Last Taken Unknown] Allergy/AdvReac Type Severity Reaction Status Date / Time No Known Allergies Allergy Verified 10/06/21 09:59 Surgical History History of cholecystectomy History of coronary artery stent placement Social History Smoking Status: Former smoker ROS ROS ED ROS Narrative Chest pain. Review of Systems ROS Unobtainable: Denies due to encephalopathy Constitutional Constitutional ED: Denies fever(s) or subjective Eyes Eyes: Denies none ENT ENT ED: Denies ear pain Cardiovascular Cardiovascular: Reports as per HPI, chest pain and palpitations; Denies racing heartbeat Respiratory/Chest Respiratory/Chest: Denies cough or dyspnea Gastrointestinal Gastrointestinal: Denies abdominal pain, diarrhea, nausea or vomiting Genitourinary Genitourinary ED: Denies dysuria Musculoskeletal Musculoskeletal: Denies myalgias Integumentary Denies rash Neurologic Neurologic: Denies headache(s) Psychiatric Psychiatric: Denies depression Endocrine Endocrinology: Denies polyuria Hematologic/Lymphatic Hematologic/Lymphatic: Denies easy bruising Allergic/Immunologic Allergic/Immunologic ED: Denies urticaria EXAM Physical Exam Narrative Exam Narrative: 81-year-old male no acute distress vital signs stable afebrile. Pulse ox 100% on room air no hypoxia. HEENT exam unremarkable. Neck nontender. No JVD. Lungs clear to auscultation bilaterally. Heart regular rhythm with premature beats. No murmur. Chest wall nontender. Abdomen soft nontender. Moving all 4 extremities. Normal strength. Calves are nontender without edema. Neurologically is awake and alert. No focal motor deficits. Const Vital Signs: 10/06/21 09:59 10/06/21 10:02 10/06/21 10:04 Temperature 96.3 F L Temperature Source Temporal Pulse Rate 86 Respiratory Rate 20 H Respiratory Effort Normal Non-Labored Blood Pressure 168/80 H Blood Pressure Mean 109 Pulse Ox 100 99 Oxygen Delivery Method Room Air Room Air 10/06/21 12:20 Temperature Temperature Source Pulse Rate 66 Respiratory Rate 17 Respiratory Effort Blood Pressure 148/71 H Blood Pressure Mean 96 Pulse Ox 98 Oxygen Delivery Method Room Air Positive well nourished and well developed; Negative for obese, cachectic, contractures or unkempt General Appearance ED: well developed and NAD; Negative for unkempt, cachectic, contractures or pallor Nutritional Appearance: Negative for cachectic or obese HEENT Denies moist mucous membranes normocephalic and atraumatic; Negative for trauma or tenderness Eyes PERRL and EOMs intact bilaterally General Eye ED: Negative for pale conjunctiva or scleral icterus Neck no lymphadenopathy, supple and no JVD General: Negative for tenderness Chest Wall inspection of chest normal and palpation of chest normal Resp normal respiratory effort and clear to auscultation bilaterally Effort and Inspection: respiratory distress Auscultation: Negative for rales, rhonchi or wheezes Cardio regular rate, S1 normal heart sound, S2 normal heart sound and no murmurs; Negative for regular rhythm Rate: Negative for bradycardia or tachycardic Rhythm: abnormal rhythm GI normal to inspection, nondistended, normoactive bowel sounds, soft to palpation, non-tender, non-distended and no masses; Negative for hepatosplenomegaly Auscultation: Negative for hyperactive bowel sounds Palpation: Negative for splenomegaly or mass Rectal Exam: Negative for heme negative stool Back/Spine no CVA tenderness and no thoracic nor lumbar tenderness General Back: Negative for CVA tenderness Cervical Spine: Negative for cervical spine tenderness Extremity normal to inspection General Extremety ED: Negative for edema, pulses abnormal or tenderness General Extremity: Negative for edema or pulses abnormal Neuro oriented x3 and CN's II-XII intact bilaterally Sensorium / Orientation: awake, alert, oriented to person, oriented to place and oriented to time Motor Exam: strength 5/5 throughout; Negative for strength abnormal Psych mental status grossly normal Appearance: Negative for unkempt Attitude: No agitated Mood & Affect: Negative for depressed or tearful Skin no rashes or lesions noted and no wounds General Skin Exam: Negative for jaundice or pallor Rashes: No rashes noted Heart Score History: Slightly/Non-Suspicious ECG: Normal Age: >/= 65 years Risk Factors: >/= 3 Risk Factors or History of CAD Troponin: </= Normal Limit Score: 4 MDM MDM MDM Narrative Medical decision making narrative: 81-year-old male with significant cardiac history with atypical nonexertional chest pain. Not reproducible. Undergo cardiac work-up. Multiple repeat exams patient is doing well at 12:30 PM. He does get relief of his discomfort with a GI cocktail and Pepcid. He has had 2 EKGs performed the second is a sinus rhythm rate of 64 with no acute change from the first and neither shows any signs of SD or ischemia. Multiple repeat exam patient is doing well last repeat exam was at 1245. He will be discharged home with a prescription for Protonix. Return if worse or follow-up with his primary care physician. Lab Data Attestation: I reviewed the patient's lab results. Lab results narrative: CBC normal white count of 7. Hemoglobin 15. Platelets 219. Electrolytes unremarkable gap of 6 creatinine of 1 high-sensitivity troponin of 9. Second troponin, delta troponin was 8. Labs: Laboratory Results - last 24 hr 10/06/21 10/06/21 10/06/21 10:05 10:05 12:15 WBC 7.0 RBC 5.37 Hgb 15.3 Hct 47.0 MCV 87.5 MCH 28.5 MCHC 32.6 RDW Std Deviation 42.0 RDW Coeff of [place] 13.1 Plt Count 219 MPV 9.5 Immature Gran % (Auto) 0.100 Neut % (Auto) 71.2 H Lymph % (Auto) 19.4 [place] % (Auto) 8.0 Eos % (Auto) 0.7 Baso % (Auto) 0.6 Absolute Neuts (auto) 5.0 Absolute Lymphs (auto) 1.36 Nucleated RBC % 0 Sodium 139 Potassium 4.0 Chloride 105 Carbon Dioxide 28.0 Anion Gap 6 BUN 20 H Creatinine 1.05 Estim Creat Clear Calc 55.18 Est GFR (MDRD) Af Amer 87 Est GFR (MDRD) Non-Af 72 BUN/Creatinine Ratio 19.0 Glucose 98 Calcium 9.5 Troponin I High Sens 9 8 Radiography Chest X-Ray - ED: 1 View, Read by ED Physician, Heart, Lungs, Mediastinum, Bony Structures, No Acute Disease and Chronic Changes Diagnostic Testing: Clinical Impression(s) from Imaging Studies Chest X-Ray 10/06/21 10:11 IMPRESSION: Questionable small left lower lobe nodule could represent the nipple shadow. Follow-up exam with nipple markers might be of value. Otherwise no active pulmonary disease. Electronically Signed: Celestine Irvin at 10:30 EST Tel , Service support , Chest x-ray, portable, single view shows no acute abnormality. Normal cardiac silhouette and mediastinum. No infiltrates. Interpreted by myself. Rhythm Strip Rhythm Strip: Sinus Rhythm Rate: 81 Ectopy: PVC(s) EKG Initial EKG: Attestation: I personally reviewed and interpreted this EKG as follows: Interpretation: Sinus Rhythm and No Acute Injury Pattern Comments: Normal sinus rhythm rate of 81 no acute signs of SD or ischemia. Frequent PVCs. Unchanged from prior EKG from October 2020. Prior EKG tracings: available for review Prior: Unchanged Treatment and Re-Evaluation Comments:: Repeat EKG at 11:22 AM was a sinus rhythm with a rate of 64 with first-degree AV block with a NC interval of 224 and occasional PACs. No significant change from the first. Discharge Plan Triage Chief Complaint: Chest Pain ED Provider: Duncan Ortega Dx/Rx/DC Orders Clinical Impression: Chest pain, History of SD (myocardial infarction), Coronary artery disease, TIA (transient ischemic attack), Acid reflux Instructions: ED Chest Pain, Uncertain Cause Prescriptions: New pantoprazole [Protonix] 20 mg tablet,delayed release (DR/EC) 20 mg PO DAILY Qty: 30 RF: 0 No Action folic acid 0.8 MG capsule 800 mg PO QHS RF: 0 multivitamin [Daily Multiple] 1 EACH tablet 1 tab PO QHS RF: 0 psyllium husk [Fiber (psyllium husk)] 0.4 GM capsule 0.8 g PO DAILY RF: 0 acetaminophen [Tylenol] 325 MG tablet 650 mg PO Q4H PRN PRN (Reason: Headache/Temp>99F) RF: 0 glucosamine [id number] 1 EACH tablet 1 ea PO QHS RF: 0 simvastatin 40 MG tablet 40 mg PO QHS RF: 0 amlodipine 5 MG tablet 5 mg PO DAILY RF: 0 clopidogrel 75 mg tablet 75 mg PO DAILY RF: 0 ciprofloxacin HCl [Cipro] 500 mg tablet 500 mg PO BID 10 Days Qty: 20 RF: 0 atorvastatin 40 mg tablet 40 mg PO DAILY RF: 0 Primary Care Provider: Joshua Colón Referrals: Joshua Colón MD [Primary Care Provider] - 3-5 Days if not improving Activity Restrictions/Additional Instructions: All your test today were unremarkable including 2 EKGs and 2 heart enzymes. This may be secondary to gastroesophageal reflux. He will be placed on a medication called Protonix. Use it daily and should help with the reflux. Follow-up with your doctor if not improving or return if worse. Disposition Disposition: Home, Self Care
[2021-10-06] MEDS: Aspirin 81 MG TAB.CHEW 324 MG PO (10:11)
--- NOTE | 2021-10-06 10:11 | RAD_ITS ---
STUDY: X-RAY CHEST REASON FOR EXAM: Male, 81 years old. Chest pain TECHNIQUE: Single AP portable view of the chest. COMPARISON: 05/09/2017. FINDINGS: Chronic changes in right lower lung. No focal infiltrate is seen. Questionable small left lower lung nodule could represent the nipple shadow. There is no demonstrated pleural abnormality. Normal size heart. Normal mediastinum and kush. Normal visualized pulmonary arteries. There is atherosclerotic tortuosity of the aortic arch and descending thoracic aorta. Degenerative changes in the visualized thoracic spine. Normal visualized ribs, clavicles, and shoulders. There is no demonstrated abnormality of the visualized soft tissue structures of the upper abdomen. RAD/Chest 1 View (Portable) IMPRESSION: Questionable small left lower lobe nodule could represent the nipple shadow. Follow-up exam with nipple markers might be of value. Otherwise no active pulmonary disease. Electronically Signed: Celestine Irvin, at 10:30 EST Tel , Service support ,
[2021-10-06 10:17] LABS: Absolute Lymphocyte Count 1.36 X10^3/uL (0.83-4.51); Basophil# 0.04 X10^3/uL; Basophil% 0.6 % (0-1); Eosinophil# 0.05 X10^3/uL; Eosinophils% 0.7 % (0-5); Hemoglobin 15.3 g/dL (13.0-16.5); Lymphocyte # 1.36 X10^3/ul (0.83-4.51); Lymphocyte % 19.4 % (19-41); Mean Corp Hgb Conc 32.6 g/dL (32-36); Mean Corpuscular Hgb 28.5 pg (27.0-32.0); Mean Corpuscular Volume 87.5 fL (80-94); Mean Platelet Vol. 9.5 fl (6.2-12.0); Monocyte# 0.56 X10^3/uL; NRBC Flagged by Analyzer 0 % (0-5); Neutrophil % 71.2 % (47-70); Platelet Count 219 K/mm3 (150-450); RBC Distribution Width CV 13.1 % (11.6-14.6); Red Blood Count 5.37 M/mm3 (4.6-6.2)
[2021-10-06 10:29] LABS: Anion Gap 6 (5-15); BUN 20 mg/dL (7-18); Calcium,Total 9.5 mg/dL (8.5-10.1); Chloride 105 mmol/L (98-107); Creatinine, Serum 1.05 mg/dL (0.70-1.30); EST Glomerular Filtration Rate 72 mL/min (>60); Est Glom Filt Rate - Afr Amer 87 mL/min (>60); Estimated Creatinine Clearance 55.18 ml/min; Glucose 98 mg/dL (74-106); Sodium Level 139 mmol/L (136-145); Troponin-I HS 9 pg/mL (3.0-78.0)
--- NOTE | 2021-10-06 10:54 | EKG12_ITS ---
Test Reason : CP Blood Pressure : / mmHG Vent. Rate : 081 BPM Atrial Rate : 100 BPM P-R Int : 190 ms QRS Dur : 094 ms QT Int : 370 ms P-R-T Axes : 082 017 054 degrees QTc Int : 429 ms Sinus rhythm with occasional Premature ventricular complexes Nonspecific ST abnormality Poor R wave progression Abnormal ECG Confirmed by FITZ MOORE, JONEL ([id number]), staff editor CARMELA MONDRAGON ([id number]) on 10/10/2021 11:37:24 AM Referred By: RADHA Confirmed By:JONEL BYRNES MD
[2021-10-06] MEDS: Famotidine 20 MG Tablet 40 MG PO (11:39)
[2021-10-06] MEDS: Mag Hydrox/Al Hydrox/Simeth 30 ML UDC PO (11:39)
[2021-10-06 12:20] VITALS: BP 148/71; PULSE 66; RESP 17; O2SAT 98
[2021-10-06 12:45] LABS: Troponin-I HS 8 pg/mL (3.0-78.0)
[2021-10-06 12:53] VITALS: BP 148/73; PULSE 57; RESP 14; O2SAT 98
== END 2021-10-06 13:02 | disposition home or self-care (01) ==
PROVIDERS: Emergency Provider Emergency Medicine; PCP Family Medicine; Visit Provider Emergency Medicine
DX: R07.89 Other chest pain (principal); I25.10 Atherosclerotic heart disease of native coronary artery without angina pectoris; I25.2 Old myocardial infarction; I10 Essential (primary) hypertension; E78.00 Pure hypercholesterolemia, unspecified; K21.9 Gastro-esophageal reflux disease without esophagitis; Z95.5 Presence of coronary angioplasty implant and graft; Z79.02 Long term (current) use of antithrombotics/antiplatelets; Z79.899 Other long term (current) drug therapy; Z86.73 Personal history of transient ischemic attack (TIA), and cerebral infarction without residual deficits; Z87.891 Personal history of nicotine dependence
CPT/HCPCS: 71045; 80048; 84484; 85025; 93005; 99285; A4216

== ENCOUNTER 2021-11-21 07:48 | Emergency (ER) | payer MEDICARE, SELFPAY ==
[2021-11-21 07:49] VITALS: BP 167/78; PULSE 72; RESP 22; TEMP 36.6; O2SAT 97; BMI 25.4
[2021-11-21 08:00] VITALS: BP 159/96; PULSE 75; RESP 16; O2SAT 99
--- NOTE | 2021-11-21 08:01 | CT_ITS ---
STUDY: CT ABDOMEN AND PELVIS WITH CONTRAST REASON FOR EXAM: Male, 81 years old. Abdominal pain RADIATION DOSAGE (If Supplied By Facility): CTDIvol = ( 17.32 ) mGy, DLP = ( 937.80 ) mGycm TECHNIQUE: Transaxial images were obtained from the dome of the diaphragm to the symphysis pubis without oral contrast. IV 100mL [id number]-300 was administered. Sagittal and coronal images were reconstructed. Individualized dose optimization techniques were used for this CT. COMPARISON: None. FINDINGS: The visualized lung bases are unremarkable. Coronary artery calcification. Normal liver. The patient is status post cholecystectomy. Normal spleen. Normal pancreas. Normal bilateral adrenal glands. There is an 8.2 cm x 9 cm x 8.9 cm cyst in the upper pole of the right kidney. Minimal rim calcification is seen along its posterior aspect. Normal left kidney. Normal visualized stomach. Normal small intestine. Moderate amount of fecal material is seen throughout the colon. The appendix is visualized and appears normal. There is diffuse atherosclerotic calcification of the abdominal aorta and its major visceral branches, without a demonstrated aneurysm. Normal inferior vena cava. Normal retroperitoneum. There is distention of the urinary bladder. Mild degree of bladder wall thickening. There is a 9.4ro diverticula of the bladder along its posterior left lateral wall. There is a right-sided inguinal hernia containing adipose tissue. There are diffuse degenerative changes of the visualized lumbar spine. Minimal anterior listhesis of L4 on L5 secondary to facet joint osteoarthritis. CT/Abdomen/Pelvis W IV Cont ONLY IMPRESSION: Distended urinary bladder with a small diverticulum along its left posterior wall. Minimal degree of bladder wall thickening. Large right renal cyst. Electronically Signed: Abdirahman Lance MD at 9:37 EST ,
--- NOTE | 2021-11-21 08:02 | EX.ED.DYSGE1 ---
HPI History of Present Illness Chief Complaint: Constipation Informant: patient Narrative Narrative: 81-year-old male presenting to the emergency room with abdominal pain and constipation. Patient states that his last good bowel movement was about 1 week ago. He is tried an enema and some polyethylene glycol as well as some Dulcolax. He states he is having a lot of belching and flatus. He notes that his pants fit normally. He has had prior cholecystectomy. He states that he has been eating and drinking normally. He did try to see his family doctor but they did not have an appointment he went to urgent care and they advised him to come to the emergency room. No fevers. [facility] Medical History Acute epididymitis Atherosclerotic heart disease of [place] coronary artery without angina pectoris BPH (benign prostatic hyperplasia) Essential hypertension Gastric ulcer Hemorrhoids Hyperlipidemia Old anterior wall myocardial infarction (1993) Paroxysmal supraventricular tachycardia Stenosis of right subclavian artery TIA (transient ischemic attack) Home Medications folic acid 800 mg PO QHS 07/03/15 [History Last Taken 07/02/15 20:00] multivitamin [Daily Multiple] 1 tab PO QHS 07/03/15 [History Last Taken 07/02/15 20:00] acetaminophen [Tylenol] 650 mg PO Q4H PRN PRN tab 04/22/17 [Rx Last Taken Unknown] glucosamine [id number] 1 ea PO QHS 05/09/17 [History Last Taken Unknown] amlodipine 5 mg PO DAILY 11/03/20 [History Last Taken Unknown] clopidogrel 75 mg PO DAILY 03/05/21 [History Last Taken Unknown] atorvastatin 40 mg PO DAILY 10/06/21 [History Last Taken Unknown] pantoprazole [Protonix] 20 mg PO DAILY #30 tab 10/06/21 [Rx Last Taken Unknown] magnesium citrate 300 ml PO X1 #3 bottle 11/21/21 [Rx Last Taken Unknown] Allergy/AdvReac Type Severity Reaction Status Date / Time No Known Allergies Allergy Verified 11/21/21 07:52 Family History (Updated 11/15/21 @ 20:10 by Barbara Fuller) Other Breast cancer COPD (chronic obstructive pulmonary disease) CVA (cerebral vascular accident) Surgical History History of cholecystectomy History of coronary angioplasty (1996) History of coronary artery stent placement (08/23/02) Social History (Updated 11/21/21 @ 08:[address] Pramod Bateman DO) Smoking Status: Former smoker substance use type: does not use ROS ROS ED Constitutional Constitutional ED: Denies chills, fever(s) or weight loss Eyes Eyes: Denies change in vision or diplopia ENT ENT ED: Denies ear pain, rhinorrhea or sore throat Cardiovascular Cardiovascular: Denies chest pain, orthopnea, palpitations or racing heartbeat Respiratory/Chest Respiratory/Chest: Denies cough, dyspnea or orthopnea Gastrointestinal Gastrointestinal: Reports abdominal pain and constipation; Denies diarrhea, nausea or vomiting Genitourinary Genitourinary ED: Denies dysuria, hematuria or urinary frequency Musculoskeletal Musculoskeletal: Denies arthralgias or myalgias Integumentary Denies abscess or rash Neurologic Neurologic: Denies headache(s) or weakness Psychiatric Psychiatric: Denies anxiety, depression, suicidal ideation or suicidal thoughts Endocrine Endocrinology: Denies polydipsia, polyphagia or polyuria Allergic/Immunologic Allergic/Immunologic ED: Denies mouth swelling, tongue swelling or urticaria EXAM Physical Exam Const Vital Signs: 11/21/21 07:49 11/21/21 08:00 11/21/21 09:46 Temperature 97.8 F Temperature Source Temporal Pulse Rate 72 75 Respiratory Rate 22 H 16 Blood Pressure 167/78 H 159/96 H 143/84 H Blood Pressure Mean 107 117 103 Pulse Ox 97 99 97 Oxygen Delivery Method Room Air Room Air Positive well nourished and well developed General Appearance ED: well developed HEENT Reports normocephalic, head/scalp atraumatic, TM's clear and moist mucous membranes Negative for trauma Tympanic Membrane ED: Yes TM's clear Eyes PERRL and EOMs intact bilaterally Neck no lymphadenopathy, supple and no JVD Resp normal respiratory effort and clear to auscultation bilaterally Cardio regular rate, regular rhythm and no murmurs GI Inspection: Negative for abdominal distention Auscultation: normoactive bowel sounds Palpation: soft and tender; Negative for guarding, mass or rebound tenderness present Back/Spine no CVA tenderness and normal ROM Extremity normal to inspection General Extremety ED: Negative for edema General Extremity: Negative for edema Neuro oriented x3 and CN's II-XII intact bilaterally Sensorium / Orientation: alert Motor Exam: strength 5/5 throughout Psych mental status grossly normal Mood & Affect: Negative for depressed or tearful Skin no rashes or lesions noted and no wounds MDM MDM MDM Narrative Medical decision making narrative: Basic blood work of a CBC and CMP are normal. CT the abdomen pelvis demonstrates a large right renal cyst. There is increased stool burden on the right side. There is a distended bladder but the patient is not having any difficulty urinating. Patient is going be started on magnesium citrate until he has a large bowel movement. Also recommend follow-up with urology for the renal cyst. Lab Data Attestation: I reviewed the patient's lab results. Labs: Laboratory Results - last 24 hr 11/21/21 11/21/21 08:20 08:20 WBC 7.0 RBC 5.25 Hgb 15.3 Hct 44.9 MCV 85.5 MCH 29.1 MCHC 34.1 RDW Std Deviation 41.3 RDW Coeff of [place] 13.2 Plt Count 175 MPV 9.3 Immature Gran % (Auto) 0.300 Neut % (Auto) 75.1 H Lymph % (Auto) 14.5 L [place] % (Auto) 8.8 Eos % (Auto) 1.0 Baso % (Auto) 0.3 Absolute Neuts (auto) 5.2 Absolute Lymphs (auto) 1.01 Nucleated RBC % 0 Sodium 137 Potassium 4.0 Chloride 103 Carbon Dioxide 29.0 Anion Gap 5 BUN 14 Creatinine 0.93 Estim Creat Clear Calc 62.30 Est GFR (MDRD) Af Amer 101 Est GFR (MDRD) Non-Af 83 BUN/Creatinine Ratio 15.1 Glucose 95 Calcium 8.9 Total Bilirubin 1.00 AST 21 ALT 33 Alkaline Phosphatase 90 Total Protein 7.8 Albumin 3.9 Globulin 3.9 Albumin/Globulin Ratio 1.0 Radiography Diagnostic Testing: Clinical Impression(s) from Imaging Studies Abdomen/Pelvis CT 11/21/21 08:01 IMPRESSION: Distended urinary bladder with a small diverticulum along its left posterior wall. Minimal degree of bladder wall thickening. Large right renal cyst. Electronically Signed: Abdirahman Lance MD at 9:37 EST , Discharge Plan Triage Chief Complaint: Constipation ED Provider: Pramod Bateman Dx/Rx/DC Orders Clinical Impression: Abdominal pain, acute, Constipation, Renal cyst Instructions: Simple Kidney Cysts Prescriptions: New magnesium citrate Solution 300 ml PO X1 Qty: 3 RF: 0 No Action folic acid 0.8 MG capsule 800 mg PO QHS RF: 0 multivitamin [Daily Multiple] 1 EACH tablet 1 tab PO QHS RF: 0 acetaminophen [Tylenol] 325 MG tablet 650 mg PO Q4H PRN PRN (Reason: Headache/Temp>99F) RF: 0 glucosamine [id number] 1 EACH tablet 1 ea PO QHS RF: 0 amlodipine 5 MG tablet 5 mg PO DAILY RF: 0 clopidogrel 75 mg tablet 75 mg PO DAILY RF: 0 atorvastatin 40 mg tablet 40 mg PO DAILY RF: 0 pantoprazole [Protonix] 20 mg tablet,delayed release (DR/EC) 20 mg PO DAILY Qty: 30 RF: 0 Primary Care Provider: Joshua Colón Referrals: Joshua Colón MD [Primary Care Provider] - Pankaj Abbott MD [STAFF PHYSICIAN] - As soon as possible (for large right renal cyst) Disposition Disposition: Home, Self Care
[2021-11-21] MEDS: Contrast Allergy Safety Check IV (08:27)
[2021-11-21 08:33] LABS: Absolute Lymphocyte Count 1.01 X10^3/uL (0.83-4.51); Absolute Neutrophil Count 5.2 X10^3/uL (2.0-7.7); Basophil# 0.02 X10^3/uL; Basophil% 0.3 % (0-1); Eosinophil# 0.07 X10^3/uL; Hematocrit 44.9 % (40-54); Hemoglobin 15.3 g/dL (13.0-16.5); Lymphocyte # 1.01 X10^3/ul (0.83-4.51); Lymphocyte % 14.5 % (19-41); Mean Corp Hgb Conc 34.1 g/dL (32-36); Mean Corpuscular Hgb 29.1 pg (27.0-32.0); Mean Corpuscular Volume 85.5 fL (80-94); Mean Platelet Vol. 9.3 fl (6.2-12.0); Monocyte# 0.61 X10^3/uL; Monocyte% 8.8 % (0-10); NRBC Flagged by Analyzer 0 % (0-5); Neutrophil # 5.22 X10^3/uL (2.7-7.7); Neutrophil % 75.1 % (47-70); Platelet Count 175 K/mm3 (150-450); RBC Distribution Width CV 13.2 % (11.6-14.6); RBC Distribution Width SD 41.3 fl (35.1-43.9); Red Blood Count 5.25 M/mm3 (4.6-6.2)
[2021-11-21 08:48] LABS: AST(SGOT) 21 U/L (15-37); Alanine Aminotransfer ALT/SGPT 33 U/L (16-61); Albumin, Serum 3.9 g/dL (3.2-5.0); Alkaline Phosphatase 90 U/L (45-117); Anion Gap 5 (5-15); BUN 14 mg/dL (7-18); BUN/Creat Ratio 15.1 RATIO (10-20); Calcium,Total 8.9 mg/dL (8.5-10.1); Chloride 103 mmol/L (98-107); Creatinine, Serum 0.93 mg/dL (0.70-1.30); EST Glomerular Filtration Rate 83 mL/min (>60); Est Glom Filt Rate - Afr Amer 101 mL/min (>60); Globulin 3.9 g/dL (2.2-4.2); Glucose 95 mg/dL (74-106); Protein, Total 7.8 g/dL (6.4-8.2); Sodium Level 137 mmol/L (136-145)
[2021-11-21 09:46] VITALS: BP 143/84; O2SAT 97
== END 2021-11-21 10:41 | disposition home or self-care (01) ==
PROVIDERS: Emergency Provider Emergency Medicine; PCP Family Medicine; Visit Provider Emergency Medicine
DX: K59.00 Constipation, unspecified (principal); I10 Essential (primary) hypertension; I25.10 Atherosclerotic heart disease of native coronary artery without angina pectoris; N28.1 Cyst of kidney, acquired; E78.5 Hyperlipidemia, unspecified; Z87.891 Personal history of nicotine dependence; N40.0 Benign prostatic hyperplasia without lower urinary tract symptoms; I25.2 Old myocardial infarction; Z86.73 Personal history of transient ischemic attack (TIA), and cerebral infarction without residual deficits; Z87.19 Personal history of other diseases of the digestive system; Z79.899 Other long term (current) drug therapy; Z79.02 Long term (current) use of antithrombotics/antiplatelets; Z90.49 Acquired absence of other specified parts of digestive tract; Z95.5 Presence of coronary angioplasty implant and graft
CPT/HCPCS: 74177; 80053; 85025; 99284; Q9967; A4216

== ENCOUNTER 2021-12-31 07:06 | Outpatient (CLI) | payer MEDICARE, SELFPAY ==
--- NOTE | 2021-12-31 07:10 | ECHOD_ITS ---
Reason For Study: CAD/ASHD Procedure This was a 2D Doppler, Color Flow transthoracic echocardiogram. Exam performed in department. Left Ventricle Normal LV size. Left ventricular systolic function is normal. The estimated ejection fraction is 60 %. Stage 1 diastolic dysfunction. No regional wall motion abnormalities noted. Right Ventricle Normal RV size. Normal systolic function. Atria Normal left atrium. Normal right atrium. Mitral Valve Normal mitral valve. Mild (1+) eccentric mitral valve insufficiency. Tricuspid Valve Normal tricuspid valve. Aortic Valve Trisinus/trileaflet aortic valve. Pulmonic Valve Normal pulmonic valve. Great Vessels Normal aortic root. The pulmonary artery is normal size. Normal inferior vena cava. Pericardium/Pleural No pericardial effusion. MMode/2D Measurements & Calculations LVIDd: 5.1 cm IVSd: 1.0 cm Ao root diam: 3.3 cm LVIDs: 3.6 cm LVPWd: 1.0 cm RVDd: 3.9 cm FS: 29.8 % LAV(MOD-bp): 58.5 ml LVAd ap4: 37.3 cm2 SV(MOD-sp4): 62.2 ml LAV(MOD-bp) Indexed: 30.3 ml/m2 LVLd ap4: 9.3 cm LAV(MOD-sp2): 59.3 ml EDV(MOD-sp4): 124.3 ml LAV(MOD-sp4): 53.0 ml EDV(sp4-el): 126.6 ml LVAs ap4: 23.9 cm2 LVLs ap4: 8.1 cm ESV(MOD-sp4): 62.1 ml ESV(sp4-el): 59.9 ml EF(MOD-sp4): 50.0 % EF(sp4-el): 52.6 % SV(sp4-el): 66.6 ml LA A4 area: 20.3 cm2 LA dimension(2D): 3.6 cm RA A4 area: 18.0 cm2 Time Measurements MV dec time: 0.20 sec Doppler Measurements & Calculations MV E max abdullahi: 40.3 cm/sec Lat Peak E' Abdullahi: 6.4 cm/sec Med Peak E' Abdullahi: 5.6 cm/sec MV A max abdullahi: 82.1 cm/sec E/E' lat: 6.3 E/E' med: 7.2 MV E/A: 0.49 Ao V2 max: 129.9 cm/sec LV V1 max: 75.3 cm/sec PA V2 max: 119.6 cm/sec Ao max P.8 mmHg LV V1 max P.3 mmHg ECHO/Echo Complete Interpretation Summary Normal LV size. Left ventricular systolic function is normal. The estimated ejection fraction is 60 %. Stage 1 diastolic dysfunction. Mild (1+) eccentric mitral valve insufficiency. Ordering Physician: Milan Ray Referring Physician: JORGE L AMES Performed By: Elisabeth Rausch RDCS
--- NOTE | 2021-12-31 16:59 | STRESSREP ---
Stress Test Report Exercise myocardial perfusion stress test. 81-year-old man with a history of coronary artery disease. Stress protocol: Resting EKG demonstrates normal sinus rhythm with premature atrial complexes noted rate of 62 bpm is noted. The patient exercised according to regular Rajiv protocol for total duration of 10 minutes. Patient completed 1 minute into stage IV of the Rajiv protocol. The maximum heart rate attained was 126 bpm which was 90% of max impact at heart rate the maximum workload was 13.4 metabolic equivalents. At rest there were no ST or T wave changes noted suggest ischemia. Occasional premature atrial and ventricular complexes were noted. At peak exercise upsloping ST changes were noted with did not meet the criteria for ischemia. No clinical angina was noted the test was terminated due to the target heart rate being achieved. The peak blood pressure was 160/70 mmHg. Myocardial perfusion protocol. 10.0 mCi of technetium 99m sestamibi was injected at rest. The patient exercised according to regular Rajiv protocol for 10 minutes and at peak exercise 34.0 mCi of technetium 99m sestamibi was injected stress images were obtained stress and rest images were reconstructed and compared in the short axis vertical long and horizontal long axis. Gated images were also obtained for Perfusion SPECT analysis: Review of the stress images demonstrate normal uptake of tracer noted in all areas of the myocardium. The resting images similarly demonstrate normal uptake of tracer noted in all areas of the myocardium. No areas of reversibility are noted suggest ischemia and no previous infarct is noted. Gated SPECT analysis: The gated ejection fraction is 53%. Conclusion: Normal exercise myocardial perfusion stress test at a high workload. Excellent functional capacity. No clinical angina noted Preserved ejection fraction.
== END 2021-12-31 23:59 | disposition home or self-care (01) ==
LOC: CVS 07:09
PROVIDERS: PCP Family Medicine; Referring Provider Internal Medicine Cardiovascular Disease; Visit Provider Internal Medicine Cardiovascular Disease
DX: G45.1 Carotid artery syndrome (hemispheric) (principal); Z95.5 Presence of coronary angioplasty implant and graft
CPT/HCPCS: 78452; 93017; 93306; A9500; A4216